=== PATIENT | male | born 1945 | race Caucasian/White ===

== ENCOUNTER 2024-12-05 08:32 | Inpatient (IN) ==
[2024-12-05] MEDS ORDERED: IOPAMIDOL 100 ML BOTTLE IV ONE (08:33)
[2024-12-05 09:53] LABS: Basophils # (Auto) 0.02 K/mcL (0.00-0.30); Basophils % (Auto) 0.1 % (0.0-2.0); Eosinophils # (Auto) 0.20 K/mcL (0.00-0.70); Eosinophils % (Auto) 1.5 % (0.0-7.0); Hematocrit 41.7 % (40.1-51.0); Hemoglobin 13.0 g/dL (13.7-17.5); Lymphocytes # (Auto) 0.52 K/mcL (1.50-4.80); Lymphocytes % (Auto) 3.8 % (15.5-49.0); Mean Corpuscular HGB Conc 31.2 g/dL (31.0-36.0); Monocytes # (Auto) 1.13 K/mcL (0.10-0.90); Monocytes % (Auto) 8.3 % (1.0-12.0); Neutrophils % (Auto) 85.8 % (38.0-78.0); Platelet Count 287 K/mcL (140-440); RBC 4.28 M/mcL (4.63-6.08); WBC 13.7 K/mcL (4.5-11.0)
[2024-12-05] MEDS: DILTIAZEM 25 MG/5 ML VIAL IV ONE (10:09)
[2024-12-05] MEDS: ONDANSETRON 4 MG/2 ML VIAL IV ONE (10:18)
[2024-12-05 10:21] LABS: Anion Gap 11.0 (8.0-16.0); Blood Urea Nitrogen 17 mg/dL (8-23); Calcium 9.3 mg/dL (8.6-10.4); Carbon Dioxide 27 mmol/L (22-30); Chloride 99 mmol/L (96-108); Glucose 182 mg/dL (70-105); Potassium 4.7 mmol/L (3.3-5.1); Sodium 137 mmol/L (133-145)
[2024-12-05] MEDS: METOPROLOL TARTRATE 5 MG/5 ML VIAL IV ONE (11:52)
[2024-12-05] MEDS ORDERED: ONDANSETRON 4 MG/2 ML VIAL IV PRN (11:55)
[2024-12-05] MEDS ORDERED: PROMETHAZINE 25 MG/ML VIAL IV PRN (11:55)
[2024-12-05 12:02] LABS: Bilirubin,Urine Negative (Negative); Color,Urine Red; Glucose,Urine (UA) Negative (Negative); Ketones,Urine 5 mg/dL (Negative); Leukocyte Esterase,Urine 25 /uL (Negative); Mucus,Urine FEW /hpf; PH,Urine 7.0 (5.0-9.0); Protein,Urine >=500 mg/dL (Negative); Specific Gravity,Urine 1.059 (1.000-1.035); Urobilinogen,Urine 4.0 mg/dL
[2024-12-05] MEDS ORDERED: METOPROLOL TARTRATE 5 MG/5 ML VIAL IV PRN (12:10)
[2024-12-05 12:12] LABS: ALT/SGPT 14.0 U/L (<40); AST/SGOT 17.0 U/L (<40); Albumin 3.7 gm/dL (3.2-5.2); Alkaline Phosphatase 75.0 U/L (39-117); Bilirubin,Direct 0.2 mg/dL (<0.3); Bilirubin,Total 0.5 mg/dL (0.1-1.0); Globulin 2.9 gm/dL (2.2-3.7)
[2024-12-05] MEDS ORDERED: POTASSIUM CHLORIDE 40 MEQ in DEXTROSE 5% IN WATER 500 ML IV PRN (12:15)
[2024-12-05] MEDS ORDERED: DEXTROSE 50% 50 ML VIAL IV PRN (12:15)
[2024-12-05] MEDS ORDERED: DEXTROSE 31 GM ORAL.SUSP PO PRN (12:15)
[2024-12-05] MEDS ORDERED: POTASSIUM CHLORIDE 20 MEQ TABLET PO PRN ×2 (12:15)
[2024-12-05] MEDS: 0.9 % SODIUM CHLORIDE 1,000 ML IV SCH (12:16)
[2024-12-05] MEDS: BENZOCAINE ONE 20% 1 SPRAY TOPICAL (13:05)
[2024-12-05] MEDS: MIDAZOLAM 2 MG/2 ML VIAL IV ONE (13:06)
[2024-12-05] MEDS: IPRATROPIUM/ALBUTEROL 3 ML AMPUL.NEB NEB ONE (13:26)
[2024-12-05] MEDS: 0.9 % SODIUM CHLORIDE 10 ML SYRINGE IV SCH (14:38)
[2024-12-05] MEDS: INSULIN LISPRO 1 UNIT/0.01 ML UNIT SQ SCH (17:07)
[2024-12-05] MEDS: FAMOTIDINE/PF 20 MG/2 ML VIAL IV SCH (21:25)
[2024-12-05] MEDS: FLUTICASONE/SALMETEROL 250/50 INHALER #14 INH SCH (21:26)
[2024-12-05] MEDS: SENNOSIDES 1 TABLET PO SCH (21:26)
[2024-12-05] MEDS: DOCUSATE SODIUM 100 MG CAPSULE PO SCH (21:26)
[2024-12-06] MEDS: METOPROLOL TARTRATE 5 MG/5 ML VIAL IV PRN (01:37)
[2024-12-06] MEDS: OLANZapine 10 MG VIAL IM PRN (03:38)
[2024-12-06 06:18] LABS: ALT/SGPT 10 U/L (<40); AST/SGOT 14 U/L (<40); Albumin 3.4 gm/dL (3.2-5.2); Albumin/Globulin Ratio 1.1 (1.0-2.3); Alkaline Phosphatase 61 U/L (39-117); Anion Gap 11.0 (8.0-16.0); Bilirubin,Direct 0.2 mg/dL (<0.3); Bilirubin,Total 0.4 mg/dL (0.1-1.0); Blood Urea Nitrogen 17 mg/dL (8-23); Calcium 8.7 mg/dL (8.6-10.4); Carbon Dioxide 28 mmol/L (22-30); Chloride 102 mmol/L (96-108); Globulin 3.1 gm/dL (2.2-3.7); Glucose 140 mg/dL (70-105); Phosphorous 3.2 mg/dL (2.5-4.5); Potassium 4.0 mmol/L (3.3-5.1); Sodium 141 mmol/L (133-145); Triglycerides 92 mg/dL (<150); Uric Acid 5.4 mg/dL (2.5-8.0)
[2024-12-06 06:25] LABS: Hematocrit 37.7 % (40.1-51.0); Hemoglobin 11.7 g/dL (13.7-17.5); Mean Corpuscular HGB Conc 31.0 g/dL (31.0-36.0); Platelet Count 262 K/mcL (140-440); RBC 3.82 M/mcL (4.63-6.08); WBC 8.3 K/mcL (4.5-11.0)
[2024-12-06] MEDS: MAGNESIUM SULFATE 2 GM/50 ML BAG IV PRN (07:17)
[2024-12-06] MEDS ORDERED: SUCRETS LOZENGE PO PRN (07:43)
[2024-12-06 08:52] LABS: RBC Morphology NORMAL (Normal)
[2024-12-06] MEDS ORDERED: ENOXAPARIN 40 MG/0.4 ML SYRINGE SQ SCH (09:00)
[2024-12-06] MEDS: BENZOCAINE/MENTHOL 1 LOZENGE PO PRN (09:02)
[2024-12-06] MEDS: METOPROLOL TARTRATE 5 MG/5 ML VIAL IV SCH (09:02)
[2024-12-06] MEDS: FUROSEMIDE 20 MG/2 ML VIAL IV SCH (09:02)
[2024-12-06] MEDS: TIOTROPIUM BROMIDE 18 MCG INHALANT INH SCH (09:03)
[2024-12-07 05:58] LABS: Basophils # (Auto) 0.04 K/mcL (0.00-0.30); Basophils % (Auto) 0.5 % (0.0-2.0); Eosinophils # (Auto) 0.55 K/mcL (0.00-0.70); Eosinophils % (Auto) 7.5 % (0.0-7.0); Hematocrit 36.0 % (40.1-51.0); Hemoglobin 11.0 g/dL (13.7-17.5); Lymphocytes # (Auto) 1.22 K/mcL (1.50-4.80); Lymphocytes % (Auto) 16.5 % (15.5-49.0); Mean Corpuscular HGB Conc 30.6 g/dL (31.0-36.0); Monocytes # (Auto) 1.07 K/mcL (0.10-0.90); Monocytes % (Auto) 14.5 % (1.0-12.0); Neutrophils % (Auto) 60.5 % (38.0-78.0); Platelet Count 214 K/mcL (140-440); RBC 3.59 M/mcL (4.63-6.08); WBC 7.4 K/mcL (4.5-11.0)
[2024-12-07 06:09] LABS: ALT/SGPT 8 U/L (<40); AST/SGOT 13 U/L (<40); Albumin 3.1 gm/dL (3.2-5.2); Albumin/Globulin Ratio 1.0 (1.0-2.3); Alkaline Phosphatase 53 U/L (39-117); Anion Gap 11.0 (8.0-16.0); Bilirubin,Direct < 0.2 mg/dL (0-0.3); Bilirubin,Total 0.3 mg/dL (0.1-1.0); Blood Urea Nitrogen 14 mg/dL (8-23); Calcium 8.5 mg/dL (8.6-10.4); Carbon Dioxide 25 mmol/L (22-30); Chloride 104 mmol/L (96-108); Globulin 3.0 gm/dL (2.2-3.7); Glucose 112 mg/dL (70-105); Phosphorous 2.9 mg/dL (2.5-4.5); Potassium 4.0 mmol/L (3.3-5.1); Sodium 140 mmol/L (133-145); Triglycerides 115 mg/dL (<150); Uric Acid 5.4 mg/dL (2.5-8.0)
[2024-12-07 10:11] LABS: PSA W/Reflex Free PSA If Ind. 0.65 ng/mL (<6.50)
[2024-12-07] MEDS ORDERED: DIATRIZOATE MEGLU/DIATRIZO SOD 120ML BOTTLE PO ONE (13:49)
[2024-12-07] MEDS: DILTIAZEM 180 MG CAP.XL.24H PO SCH (15:39)
[2024-12-07] MEDS ORDERED: POLYETHYLENE GLYCOL 3350 17 GM PACKET PO PRN (19:18)
[2024-12-08 06:42] LABS: Basophils # (Auto) 0.03 K/mcL (0.00-0.30); Basophils % (Auto) 0.3 % (0.0-2.0); Eosinophils # (Auto) 0.57 K/mcL (0.00-0.70); Eosinophils % (Auto) 6.0 % (0.0-7.0); Hematocrit 35.9 % (40.1-51.0); Hemoglobin 11.1 g/dL (13.7-17.5); Lymphocytes # (Auto) 1.07 K/mcL (1.50-4.80); Lymphocytes % (Auto) 11.2 % (15.5-49.0); Mean Corpuscular HGB Conc 30.9 g/dL (31.0-36.0); Monocytes # (Auto) 1.41 K/mcL (0.10-0.90); Monocytes % (Auto) 14.8 % (1.0-12.0); Neutrophils % (Auto) 67.1 % (38.0-78.0); Platelet Count 203 K/mcL (140-440); RBC 3.59 M/mcL (4.63-6.08); WBC 9.5 K/mcL (4.5-11.0)
[2024-12-08 07:06] LABS: ALT/SGPT 11 U/L (<40); AST/SGOT 14 U/L (<40); Albumin 3.5 gm/dL (3.2-5.2); Albumin/Globulin Ratio 1.2 (1.0-2.3); Alkaline Phosphatase 56 U/L (39-117); Anion Gap 10.0 (8.0-16.0); Bilirubin,Direct < 0.2 mg/dL (0-0.3); Bilirubin,Total 0.3 mg/dL (0.1-1.0); Blood Urea Nitrogen 12 mg/dL (8-23); Calcium 8.6 mg/dL (8.6-10.4); Carbon Dioxide 27 mmol/L (22-30); Chloride 105 mmol/L (96-108); Globulin 3.0 gm/dL (2.2-3.7); Glucose 149 mg/dL (70-105); Phosphorous 3.5 mg/dL (2.5-4.5); Potassium 3.7 mmol/L (3.3-5.1); Sodium 142 mmol/L (133-145); Triglycerides 99 mg/dL (<150); Uric Acid 5.5 mg/dL (2.5-8.0)
[2024-12-08] MEDS ORDERED: DILTIAZEM 180 MG CAP.XL.24H PO SCH (09:00)
[2024-12-08] MEDS: TAMSULOSIN 0.4 MG CAPSULE PO SCH (10:01)
[2024-12-08] MEDS: DILTIAZEM 240 MG CAP.XL.24H PO SCH (10:07)
[2024-12-08] MEDS: LIDOCAINE 2% URO-JET 10 ML JEL.PF.APP UR ONE (17:14)
[2024-12-08] MEDS: 0.9 % SODIUM CHLORIDE 1,000 ML IV SCH (23:42)
[2024-12-09] MEDS: IPRATROPIUM/ALBUTEROL 3 ML AMPUL.NEB NEB PRN (00:38)
[2024-12-09] MEDS: 0.9 % SODIUM CHLORIDE 250 ML IV ONE (08:51)
[2024-12-09 09:16] LABS: ALT/SGPT 11 U/L (<40); AST/SGOT 15 U/L (<40); Albumin 3.6 gm/dL (3.2-5.2); Albumin/Globulin Ratio 1.1 (1.0-2.3); Alkaline Phosphatase 57 U/L (39-117); Anion Gap 13.0 (8.0-16.0); Bilirubin,Direct < 0.2 mg/dL (0-0.3); Bilirubin,Total 0.4 mg/dL (0.1-1.0); Blood Urea Nitrogen 15 mg/dL (8-23); Calcium 9.1 mg/dL (8.6-10.4); Carbon Dioxide 25 mmol/L (22-30); Chloride 102 mmol/L (96-108); Globulin 3.2 gm/dL (2.2-3.7); Glucose 212 mg/dL (70-105); Phosphorous 4.1 mg/dL (2.5-4.5); Potassium 4.1 mmol/L (3.3-5.1); Sodium 140 mmol/L (133-145); Triglycerides 104 mg/dL (<150); Uric Acid 6.5 mg/dL (2.5-8.0)
[2024-12-09] MEDS: 0.9 % SODIUM CHLORIDE 1,000 ML IV ONE (09:26)
[2024-12-09] MEDS ORDERED: ACETAMINOPHEN 1,000 MG/100 ML BAG IV PRN (14:21)
[2024-12-09] MEDS: ACETAMINOPHEN 1,000 MG/100 ML BAG IV SCH (14:36)
[2024-12-09] MEDS ORDERED: ACETAMINOPHEN 1,000 MG/100 ML BAG IV SCH (14:45)
[2024-12-09] MEDS: HYDROmorphone 0.5 MG/0.5 ML SYRINGE IV PRN (16:07)
[2024-12-10 06:15] LABS: Anion Gap 11.0 (8.0-16.0); Blood Urea Nitrogen 16 mg/dL (8-23); Calcium 8.7 mg/dL (8.6-10.4); Carbon Dioxide 25 mmol/L (22-30); Chloride 101 mmol/L (96-108); Glucose 150 mg/dL (70-105); Potassium 3.9 mmol/L (3.3-5.1); Sodium 137 mmol/L (133-145)
[2024-12-10] MEDS: HALOPERIDOL LACTATE 5 MG/ML VIAL IV PRN (09:10)
[2024-12-11] MEDS: OLANZapine 10 MG VIAL IM PRN (02:19)
[2024-12-11 10:30] VITALS: TEMP 97.4; O2SAT 95
== END 2024-12-11 11:17 | DRG 389 ==
LOC: ED 08:32 → MEDSUR 13:16
PROVIDERS: ADMIT Surgery; ATTEND Internal Medicine